=== PATIENT | male | born 1980 | race American Indian/Alaskan Native ===

== ENCOUNTER 2018-09-02 01:13 | Emergency (ER) | payer SELFPAY ==
[2018-09-02 01:13] VITALS: BMI 37.5
[2018-09-02] MEDS ORDERED: Labetalol 5mg/ml (4ml) IV STA (01:32)
[2018-09-02] MEDS ORDERED: Sodium Chloride 0.9% 500 ML IV STA (01:53)
--- NOTE | 2018-09-02 01:54 | ED PDOC ---
Arrival/HPI - General Chief Complaint: High Blood Pressure Time Seen by Provider: 09/02/18 01:13 Historian: Patient - History of Present Illness Narrative History of Present Illness (Text): 09/02/18 01:51 A 37 year old male, a current smoker 4 packs a day, whose past medical history includes hypertension, presents to the emergency department complaining of high blood pressure for the past 1 week. Patient reports he went to take a nap today when he suddenly woke up feeling ill. Patient notes experiencing head pressure, palpitations, and intermittent sharp pressure to left chest. Patient denies any current pain. He reports currently being on medication, lisinopril and norvasc 10 mg, for hypertension. Patient notes being in the ER twice last week for similar symptoms. Patient states he took medication earlier today. Patient states he has not smoked for the past 1 week. Patient reports he took a laxative and has been constipated. Patient reports he has not seen a drafter automotive design layout yet. Patient denies any fever, chills, shortness of breath, chest pain, diarrhea, nausea, vomiting, urinary symptoms, back pain, neck pain, headache, dizziness, or any other complaints. No PMD Time/Duration: 1 week Symptom Onset: Gradual Symptom Course: Unchanged Activities at Onset: Light Context: Home Past Medical History - Provider Review Nursing Documentation Reviewed: Yes - Cardiac Hx Hypertension: Yes - Pulmonary Hx Asthma: Yes - Psychiatric Hx Psychophysiologic Disorder: No Hx Depression: No Hx Emotional Abuse: No Hx Physical Abuse: No Hx Substance Use: No - Past Surgical History Past Surgical History: No Previous - Anesthesia Hx Anesthesia: No Hx Anesthesia Reactions: No Hx Malignant Hyperthermia: No - Suicidal Assessment Feels Threatened In Home Enviroment: No Family/Social History - Physician Review Nursing Documentation Reviewed: Yes Family/Social History: No Known Family HX Smoking Status: quit rcent Hx Alcohol Use: Yes Hx Substance Use: No Hx Substance Use Treatment: No Allergies/Home Meds Allergies/Adverse Reactions: Allergies No Known Allergies Allergy (Verified 03/14/14 18:52) Home Medications: Home Meds Medication Instructions Recorded Confirmed Lisinopril/Hydrochlorothiazide 1 tab PO DAILY 09/02/18 09/02/18 [Lisinopril-Hctz 20-12.5 mg Tab] Review of Systems - Physician Review All systems were reviewed & negative as marked: Yes - Review of Systems Constitutional: absent: Fevers, Other (chills) Respiratory: absent: SOB Cardiovascular: Palpitations, Other (chest pressure). absent: Chest Pain Gastrointestinal: Constipation. absent: Diarrhea, Nausea, Vomiting Musculoskeletal: absent: Back Pain, Neck Pain Neurological: absent: Headache, Dizziness Physical Exam Vital Signs Reviewed: Yes Vital Signs Temp Pulse Resp BP Pulse Ox 09/02/18 01:30 98.7 F 89 18 165/114 H 100 Temperature: Afebrile Blood Pressure: Hypertensive Pulse: Regular Respiratory Rate: Normal Appearance: Positive for: Well-Appearing Mental Status: Positive for: Alert and Oriented X 3 - Systems Exam Head: Present: Atraumatic, Normocephalic Pupils: Present: PERRL Extroacular Muscles: Present: EOMI Conjunctiva: Present: Normal Respiratory/Chest: Present: Clear to Auscultation, Good Air Exchange. No: Respiratory Distress, Accessory Muscle Use Cardiovascular: Present: Regular Rate and Rhythm, Normal S1, S2. No: Murmurs Abdomen: No: Tenderness, Distention, Peritoneal Signs Neurological: Present: GCS=15, CN II-XII Intact, Speech Normal Skin: Present: Warm, Dry, Normal Color. No: Rashes Psychiatric: Present: Alert, Oriented x 3, Normal Insight, Normal Concentration Medical Decision Making ED Course and Treatment: 09/02/18 01:51 Impression: 37 year old male presenting to the emergency room complaining of high blood pressure. Plan: -- Labs -- EKG -- CBC -- Trandate -- Urinalysis -- Reassess and disposition Prior Visits: Notes and results from previous visits were reviewed. Progress Notes: 09/02/18 04:32 Patient is adamantly refusing blood pressure medication and states he will follow up with his primary care doctor. Had a discussion in regards to changes in lifestyle and diet with patient acknowledging. Opportunity for questions and answers given. Patient is stable for discharge. - Lab Interpretations Lab Results: 09/02/18 02:13 09/02/18 02:13 Lab Results 09/02/18 02:19: Urine Color Yellow, Urine Appearance Clear, Urine pH 7.0, Ur Specific [place] 1.015, Urine Protein Negative, Urine Glucose (UA) Negative, Urine Ketones Negative, Urine Blood Negative, Urine Nitrate Negative, Urine Bilirubin Negative, Urine Urobilinogen 1.0 H, Ur Leukocyte Esterase Negative 09/02/18 02:13: Sodium 142, Potassium 3.2 L, Chloride 99, Carbon Dioxide 33, Anion Gap 13, BUN 12, Creatinine 0.9, Est GFR ( Amer) > 60, Est GFR (Non- Af Amer) > 60, Random Glucose 105, Calcium 9.6, Total Bilirubin 0.8, AST 24, ALT 11, Alkaline Phosphatase 63, Troponin I < 0.01, NT-Pro-B Natriuret Pep 16.2, Total Protein 7.9, Albumin 4.5, Globulin 3.5, Albumin/Globulin Ratio 1.3 09/02/18 02:13: WBC 8.5, RBC 5.25, Hgb 15.2, Hct 43.1, MCV 82.1, MCH 29.0, MCHC 35.3, RDW 13.0, Plt Count 267, MPV 10.2, Neut % (Auto) 60.4, Lymph % (Auto) 31.9, Reeves % (Auto) 5.4, Eos % (Auto) 2.1, Baso % (Auto) 0.2, Lymph # (Auto) 2.7, Reeves # (Auto) 0.5, Eos # (Auto) 0.2, Baso # (Auto) 0.02, Absolute Neuts (auto) 5.14 I have reviewed the lab results: Yes - EKG Interpretation EKG Interpretation (Text): 09/02/18 02:07 EKG: Ordered, reviewed, and independently interpreted the EKG. Rate : 87 BPM Rhythm : NSR Interpretation : Inverted T waves in V5-V6 and lead II, prolonged QT interval. Interpreted by ED Physician: Yes - Medication Orders Current Medication Orders: Labetalol HCl (Trandate) 20 mg IV STAT STA Stop: 09/02/18 01:33 - Scribe Statement The provider has reviewed the documentation as recorded by the Simeon Mccormick All medical record entries made by the Simeon were at my direction and personally dictated by me. I have reviewed the chart and agree that the record accurately reflects my personal performance of the history, physical exam, medical decision making, and the department course for this patient. I have also personally directed, reviewed, and agree with the discharge instructions and disposition. Disposition/Present on Arrival - Present on Arrival Any Indicators Present on Arrival: No History of DVT/PE: No History of Uncontrolled Diabetes: No Urinary Catheter: No History of Decub. Ulcer: No History Surgical Site Infection Following: None - Disposition Have Diagnosis and Disposition been Completed?: Yes Diagnosis: Hypertensive urgency Disposition: HOME/ ROUTINE Disposition Time: 04:32 Patient Plan: Discharge Condition: STABLE Discharge Instructions (ExitCare): High Blood Pressure (DC), Medicines for High Blood Pressure Print Language: UKRAINIAN Additional Instructions: All medical record entries made by the Scribe were at my direction and personally dictated by me. I have reviewed the chart and agree that the record accurately reflects my personal performance of the history, physical exam, medical decision making, and the department course for this patient. I have also personally directed, reviewed, and agree with the discharge instructions and disposition. Please follow up with your PCP for medication reconciliation Referrals: [facility] at [facility] [Outside] - Follow up with primary Latoya Gonzalez MD [Medical Doctor] - Follow up with primary Forms: [facility] (Hebrew), WORK NOTE
[2018-09-02 02:24] LABS: BASO # 0.02 K/mm3 (0.0-2.0); BASO % 0.2 % (0.0-3.0); EOS # 0.2 (0.0-0.7); EOS % 2.1 % (1.5-5.0); HEMOGLOBIN 15.2 g/dL (14.0-18.0); LYMPH # 2.7 (1.2-3.4); LYMPH % 31.9 % (22.0-35.0); MEAN CELL VOLUME 82.1 fl (80.0-105.0); MEAN CORPUSCULAR HGB CONC 35.3 g/dl (31.0-37.0); MEAN PLATELET VOLUME 10.2 fl (7.0-11.0); MONO # 0.5 (0.1-0.6); MONO % 5.4 % (1.0-6.0); RBC 5.25 10^6/uL (3.5-6.1); WHITE BLOOD COUNT 8.5 10^3/uL (4.5-11.0)
[2018-09-02 02:35] LABS: ALB/GLOB RATIO 1.3 (1.1-1.8); ALBUMIN 4.5 g/dL (3.0-4.8); ALT/SGPT 11 U/L (7-56); AST/SGOT 24 U/L (17-59); BLOOD UREA NITROGEN 12 mg/dL (7-21); CALCIUM 9.6 mg/dL (8.4-10.5); GFR NON-AFRICAN AMERICAN > 60
[2018-09-02 02:46] LABS: B-TYPE NATRIURETIC PEPTIDE 16.2 pg/mL (0-450); TROPONIN I < 0.01 ng/mL
[2018-09-02 03:06] LABS: URINE BILIRUBIN NEGATIVE (NEGATIVE); URINE BLOOD NEGATIVE (NEGATIVE); URINE GLUCOSE (UA) NEGATIVE (NEGATIVE); URINE LEUKOCYTE ESTERASE NEGATIVE Leu/uL (NEGATIVE); URINE PROTEIN NEGATIVE mg/dL (<30 mg/dL)
[2018-09-02 03:10] LABS: URINE APPEARANCE CLEAR (CLEAR); URINE COLOR YELLOW (YELLOW)
[2018-09-02 03:33] VITALS: BP 162/90
[2018-09-02 04:39] VITALS: PULSE 75; RESP 19; TEMP 98.1; O2SAT 99
--- NOTE | 2018-09-03 05:33 | CARD ---
APPROVED REPORT Date of service: 09/02/2018 EKG Measurement Heart [id number] [place] [id number] [id number] <Conclusion> Normal sinus rhythm T wave abnormality, consider inferior ischemia Prolonged QT Abnormal ECG
== END 2018-09-02 04:39 | disposition home or self-care (01) ==
LOC: ED 01:13
DX: I16.0 Hypertensive urgency (principal); I10 Essential (primary) hypertension
CPT/HCPCS: 80053; 81003; 83880; 84484; 85025; 93005; 96374; 99283; J2765; J7040